=== PATIENT | female | born 1945 | race Caucasian/White ===

== ENCOUNTER 2016-08-23 13:27 | Outpatient (CLI) | payer MEDICARE, BC | END 2016-08-23 23:59 | disposition home or self-care (01) | LOC: D.MAMMO 13:27 | DX: Z12.31 Encounter for screening mammogram for malignant neoplasm of breast (principal) ==

== ENCOUNTER → 2017-10-15 09:11 | Outpatient (CLI) | payer MEDICARE, BC | END | disposition home or self-care (01) | LOC: D.MRI 10-09 18:00 | DX: G43.B0 Ophthalmoplegic migraine, not intractable (principal) ==

== ENCOUNTER 2019-04-21 11:01 | Emergency (ER) | payer MEDICARE, BC ==
[~2019-04-21] VITALS: Ht 167.6 cm; Wt 72.3 kg
[2019-04-21 11:08] VITALS: Ht 167.6 cm; Wt 72.3 kg
[2019-04-21] MEDS ORDERED: CARTIA XT240 MG PO (11:10)
[2019-04-21] MEDS ORDERED: LEVOXYL125 MCG PO (11:10)
[2019-04-21] MEDS ORDERED: BREO ELLIPTA 21 EACH (11:11)
[2019-04-21] MEDS ORDERED: SINGULAIR10 MG PO (11:11)
[2019-04-21 11:55] LABS: BASOPHILS 0.3 % (0-2); EOSINOPHILS 0.8 % (0-7); HEMATOCRIT 44.6 % (36.0-48.0); HEMOGLOBIN 15.2 g/dL (12-16); IMMATURE GRANULOCYTES 0.1 % (0-5); LYMPHOCYTES 18.9 % (15-50); MCH 31.4 pg (26.0-34.0); MCHC 34.1 g/dL (31.0-37.0); MCV 92.1 fL (80.0-100.0); MEAN PLATELET VOLUME 10.4 fL (7.4-10.4); MONOCYTES 6.6 % (2-11); NEUTROPHILS 73.3 % (40-80); PLATELET COUNT 231 10x3/uL (130-400); RBC 4.84 10x6/uL (4.00-5.40); RDW 12.4 % (11.5-14.5); WBC 7.1 10x3/uL (4.8-10.8)
[2019-04-21 12:04] LABS: CALC OSMOLALITY 281 mosm/kg (275-300); CALCIUM 8.8 mg/dL (8.5-10.1); CARBON DIOXIDE 27.5 mmol/L (21.0-32.0); CHLORIDE - SERUM 106 mmol/L (98-107); CREATININE - SERUM 0.7 mg/dL (0.6-1.3); GLUCOSE 99 mg/dL (74-106); POTASSIUM - SERUM 3.8 mmol/L (3.5-5.1); SODIUM 141 mmol/L (136-145); UREA NITROGEN 15 mg/dL (7-18); eGFR NON AFRICAN AMERICAN 87 mL/min (90-120)
[2019-04-21 12:11] LABS: APTT 32.3 SECONDS (22.8-39.4); INR 0.96 (0.85-1.17); PROTIME 12.7 SECONDS (11.6-15.0)
[2019-04-21 12:20] LABS: ALBUMIN 3.9 g/dL (3.4-5.0); ALKALINE PHOSPHATASE 73 U/L (46-116); ALT (SGPT) 17 U/L (10-68); BILIRUBIN - TOTAL 0.78 mg/dL (0.2-1.3); CKMB 1.7 U/L (0.0-3.6); CREATINE KINASE 69 UL (21-215); MAGNESIUM - SERUM 2.2 mg/dL (1.8-2.4); PROTEIN - SERUM 6.9 g/dL (6.4-8.2); TROPONIN-I < 0.017 ng/mL (0.000-0.060)
[2019-04-21] MEDS ORDERED: LISINOPRIL-HCT1 EAC4 PO (13:12)
[2019-04-21 21:26] VITALS: BP 130/71
== END 2019-04-21 13:45 | disposition home or self-care (01) ==
LOC: D.ER 11:01
PROVIDERS: Family Medicine
DX: I10 Essential (primary) hypertension (principal)